=== PATIENT | female | born 1980 | race Caucasian/White ===

== ENCOUNTER 2019-02-16 18:21 | Emergency (ER) | payer SELFPAY ==
[2019-02-16] MEDS ORDERED: LIDOCAINE 1% 10 ML VIAL INJ ONE (18:38)
[2019-02-16] MEDS ORDERED: CHLORHEXIDINE GLUCONATE 4 % 15 ML UD TOP ONE (18:40)
[2019-02-16 18:51] VITALS: TEMP 97.8; O2SAT 97
[2019-02-16] MEDS ORDERED: HYDROcodone 7.5MG/APAP 325MG 1 EA TAB PO ONE (19:02)
[2019-02-16] MEDS ORDERED: TETANUS,DIPHTHERIA,PERTUSSIS 1 EA SYG IM ONE (19:02)
[2019-02-16] MEDS ORDERED: AMOXICILLIN & POT CLAVULANATE 875 MG TAB PO ONE (19:03)
--- NOTE | 2019-02-16 19:04 | ED.PDOC ---
History of Present Illness - General Chief Complaint: Laceration Stated Complaint: Laceration to right foot Time Seen by Provider: 02/16/19 19:00 Source: patient Exam Limitations: no limitations - History of Present Illness Initial Comments: Was in [place] and accidently kicked the propellar. Has lac to R foot Timing/Duration: 1 hour Severity: moderate Improving Factors: immobilization Worsening Factors: movement Associated Symptoms: denies symptoms Allergies/Adverse Reactions: Allergies NO KNOWN ALLERGY Allergy (Verified 02/16/19 18:50) Home Medications: Ambulatory Orders Amoxicillin & Pot Clavulanate [Augmentin Tab] 875 mg PO BID #10 tab 02/16/19 Medroxyprogesterone Acetate (C [Depo-Provera Contraceptiv] 150 mg IM Q3M 02/16/19 Tramadol HCl 50 mg PO Q4HWA PRN #15 tab 02/16/19 Review of Systems - Review of Systems Constitutional: States: no symptoms reported EENTM: States: no symptoms reported Respiratory: States: no symptoms reported Cardiology: States: no symptoms reported Gastrointestinal/Abdominal: States: no symptoms reported Skin: States: see HPI Past Medical History (General) - Patient Medical History Hx Stroke: No Hx of COPD: No Hx Congestive Heart Failure: No Hx Hypertension: Yes Hx Diabetes: No Hx Cancer: No Surgical History: no surgical history - Vaccination History Hx Tetanus, Diphtheria Vaccination: No Hx Influenza Vaccination: No Hx Pneumococcal Vaccination: No - Social History Hx Tobacco Use: Yes Hx Alcohol Use: Yes Hx Substance Use: No Hx Substance Use Treatment: No Hx Depression: No - Female History Patient is a Female of Child Bearing Age (10 -59 yrs old): Yes Patient : No - Depo shot Family Medical History - Family History Father Family History: No Known Living Status: Unknown Physical Exam - Physical Exam General Appearance: Alert, Anxious Extremity: other - R foot has lac between 3rd and 4th toes, 3 cm Procedures - Laceration/Wound Repair Right Foot Wound's Depth, Shape: linear Wound Explored: no foreign body removed Irrigated w/ Saline (cc's): 50 Betadine Prep?: No - Hibiclens Anesthesia: 1% Lidocaine Volume Anesthetic (cc's): 4 Wound Repaired With: sutures Suture Size/Type: 4:0, prolene Number of Sutures: 4 Layer Closure?: No Sterile Dressing Applied?: Yes Splint Applied?: No Sling Applied?: No Departure - Departure Clinical Impression: Laceration Disposition: Discharge to Home or Self Care Departure Forms: ED Discharge - Pt. Copy, Patient Portal Self Enrollment Prescriptions: Amoxicillin & Pot Clavulanate [Augmentin Tab] 875 mg PO BID #10 tab Tramadol HCl 50 mg PO Q4HWA PRN #15 tab PRN Reason: Moderate To Severe Pain Home Medications: Ambulatory Orders Amoxicillin & Pot Clavulanate [Augmentin Tab] 875 mg PO BID #10 tab 02/16/19 Medroxyprogesterone Acetate (C [Depo-Provera Contraceptiv] 150 mg IM Q3M 02/16/19 Tramadol HCl 50 mg PO Q4HWA PRN #15 tab 02/16/19
[2019-02-16 19:26] VITALS: BP 120/88
== END 2019-02-16 19:25 | disposition home or self-care (01) ==
LOC: ER 18:21
DX: S91.311A Laceration without foreign body, right foot, initial encounter (principal); I10 Essential (primary) hypertension; W22.8XXA Striking against or struck by other objects, initial encounter; Y92.828 Other wilderness area as the place of occurrence of the external cause; Z87.891 Personal history of nicotine dependence